=== PATIENT | male | born 1995 | race Caucasian/White ===

== ENCOUNTER 2017-01-21 14:53 | Emergency (ER) | payer OTHER ==
[~2017-01-21] VITALS: Ht 182.9 cm; Wt 89.0 kg
[~2017-01-21 14:53] MED LIST: IBUP-1050 PO
[2017-01-21 14:57] VITALS: TEMP 36.7; O2SAT 98; Ht 182.9 cm; Wt 89.0 kg
[2017-01-21] MEDS ORDERED: IBUPROFEN 600 MG TAB PO STA (15:06)
--- NOTE | 2017-01-21 15:48 | DIAGNOSTIC IMAGING REPORT ---
RIGHT ELBOW MIN 3 VIEWS ROUTINE CLINICAL HISTORY: Right elbow pain status post trauma COMPARISON: None. DISCUSSION: There is a hemarthrosis. There is a nondisplaced radial neck fracture. There is no dislocation. IMPRESSION: Acute nondisplaced radial neck fracture. Electronically signed by: Jim Rosado M.D. 01/21/2017 3:47 PM Dictated Date/Time: 01/21/2017 3:46 PM
[2017-01-21] MEDS ORDERED: AMPH20TA2 PO (15:52)
[2017-01-21] MEDS ORDERED: FAT BURNER PO (15:52)
--- NOTE | 2017-01-21 15:59 | EMERGENCY ROOM VISIT NOTE ---
ED Visit Note First contact with patient: 15:02 CHIEF COMPLAINT: Right Elbow injury HISTORY OF PRESENT ILLNESS: This 22-year-old male patient rolled over in his bed and hit his right elbow off the nightstand and then fell to the floor landing on his elbow. The patient states it hurts to move the elbow. The patient denies any numbness and tingling in his fingers. The patient denies any shoulder or wrist pain. The patient denies any prior injury to his right elbow. He has not taken anything for pain. REVIEW OF SYSTEMS: 6 system review was performed and was negative unless stated otherwise in history of present illness. PMH: The patient is healthy; there is no significant medical or surgical history. SOCIAL HISTORY: Patient is a [employer] student. The patient admits to tobacco use and occasional alcohol use. PHYSICAL EXAM: Vital Signs: Were reviewed Reviewed nurse's notes. GEN.: 22-year -old male appears in no acute distress. MENTAL Status: Alert and oriented 3. RIGHT ELBOW: The elbow is swollen but not deformed on inspection. The range of motion is limited in all directions because of the pain. The skin is intact and there is no swelling over the olecranon process. The patient is full range of motion of his shoulder and wrist without pain. Sensation is intact. EMERGENCY DEPARTMENT COURSE: The patient was evaluated. The patient was given Motrin 600 mg by mouth for pain. X-ray of the right elbow was ordered and interpreted by the radiologist and myself. DIAGNOSTICS:RIGHT ELBOW MIN 3 VIEWS ROUTINE CLINICAL HISTORY: Right elbow pain status post trauma COMPARISON: None. DISCUSSION: There is a hemarthrosis. There is a nondisplaced radial neck fracture. There is no dislocation. IMPRESSION: Acute nondisplaced radial neck fracture. Electronically signed by: Jim Rosado M.D. 01/21/2017 3:47 PM Dictated Date/Time: 01/21/2017 3:46 PM The patient was informed of the findings. She was still in a lot of pain and therefore was given Dunbar 5/325 mg 2 tablets by mouth for pain. He is also given a Dunbar home pack. The patient was placed in an arm sling and discharged home in stable condition. DIAGNOSIS: Right radial neck fracture DISCHARGE INSTRUCTIONS & TREATMENT: Ibuprofen 600 mg every 6 hours with food for pain. Take Dunbar as needed for more severe pain. Do not drive while taking the Dunbar. Ice intermittently over the next 24 hours. Keep arm in sling until evaluated by orthopedics. Call [facility] orthopedics tomorrow morning for follow-up appointment. Current/Historical Medications Scheduled Amphetamine-Dextroamphetamine 20MG (Adderall 20MG), 20 MG PO DAILY [Fat Burner], 1 TAB PO DAILY Scheduled PRN Hydrocodone/Acetaminophen 5MG/325MG (Dunbar 5MG/325MG), 1-2 TABLET PO Q6 PRN for Pain Allergies Coded Allergies: No Known Allergies (Unverified , 01/18/16) Vital Signs Date Time Temp Pulse Resp B/P Pulse Ox O2 Delivery O2 Flow Rate FiO2 01/21/17 16:03 60 14 130/100 01/21/17 14:57 36.7 82 20 152/98 98 Room Air Medications Administered Medications (Trade) Dose Ordered Sig/Preethi Route Start Time Stop Time Status Last Admin Dose Admin Ibuprofen (Motrin Tab) 600 mg NOW STAT PO 01/21/17 15:06 01/21/17 15:09 DC 01/21/17 15:45 600 MG Departure Information Prescriptions Hydrocodone/Acetaminophen 5MG/325MG (Dunbar 5MG/325MG) Tab 1-2 TABLET PO Q6 Y for Pain, #20 TAB For Initial Treatment Prov: Johanna Loomis PA-C 01/21/17 Referrals [facility] (PCP) Patient Instructions My [facility] [address]
[2017-01-21 16:03] VITALS: BP 130/100; PULSE 60
[2017-01-21] MEDS ORDERED: HYDROCODONE/ACETAMOPHEN 5/325MG TAB PO STA (16:03)
[2017-01-21] MEDS ORDERED: HYDR-5688 PO (16:05)
[2017-01-21] MEDS ORDERED: NORCO 5/325MG HOME PACK PO ONE (16:15)
== END 2017-01-21 16:16 | disposition home or self-care (01) ==
LOC: C.EDB 14:54 → C.EDD 16:16
DX: S52.134A Nondisplaced fracture of neck of right radius, initial encounter for closed fracture (principal); W22.8XXA Striking against or struck by other objects, initial encounter; Y92.003 Bedroom of unspecified non-institutional (private) residence as the place of occurrence of the external cause; Z79.899 Other long term (current) drug therapy